=== PATIENT | female | born 2000 | race Caucasian/White ===

== ENCOUNTER 2022-05-16 05:53 | Day surgery (SDC) | payer MEDICAID ==
[~2022-05-16] VITALS: Ht 160 cm; Wt 59.9 kg
[2022-05-16] MEDS ORDERED: BUPIVACAINE-MPF/EPI 0.25% 10 ML VIAL INJ ONE (07:12)
[2022-05-16] MEDS ORDERED: LIDOCAINE MPF 1% 10 ML ONE (07:12)
[2022-05-16 07:40] LABS: BASOPHILS # (AUTO) 0.1 K/uL (0.00-0.22); BASOPHILS % (AUTO) 0.9 % (0.0-2.0); EOSINOPHILS # (AUTO) 0.1 K/uL (0-0.4); HEMATOCRIT 37.5 % (36-48); HEMOGLOBIN 12.2 g/dL (12.0-16.0); LYMPHOCYTES # (AUTO) 2.6 K/uL (2.5-16.5); LYMPHOCYTES % (AUTO) 32.7 % (20.5-51.1); MEAN CORPUSCULAR HEMOGLOBIN 27 pg (27-31); MEAN CORPUSCULAR HGB CONC 33 g/dL (33-37); MEAN CORPUSCULAR VOLUME 82.5 fL (80-94); MONOCYTES # (AUTO) 0.6 K/uL (0.8-1.0); MONOCYTES % (AUTO) 6.9 % (1.7-9.3); NEUTROPHILS # (AUTO) 4.7 K/uL (1.8-7.7); NEUTROPHILS % (AUTO) 58.5 % (42.2-75.2); PLATELET COUNT (AUTO) 225 K/uL (140-450); RED BLOOD CELL COUNT(AUTO) 4.55 MIL/uL (4.20-5.40); RED CELL DISTRIBUTION WIDTH 14.3 % (11.6-13.7); WHITE BLOOD COUNT (AUTO) 8.1 K/uL (4.8-10.8)
[2022-05-16 07:56] LABS: ALBUMIN 4.1 g/dL (3.4-5.0); ANION GAP 10.7 (8-16); CARBON DIOXIDE 27.9 mmol/L (21-32); CREATININE 0.7 mg/dL (0.6-1.3); POTASSIUM 3.6 mmol/L (3.5-5.1); TOTAL BILIRUBIN 0.2 mg/dL (0.0-1.0)
[2022-05-16] MEDS ORDERED: ROCURONIUM 50 MG/5 ML VIAL IV ONE ×2 (11:15→11:47)
[2022-05-16] MEDS ORDERED: ceFAZolin 1,000 MG VIAL ONE (11:15)
[2022-05-16] MEDS ORDERED: PROPOFOL 200 MG/20 ML VIAL IV ONE ×2 (11:15→11:46)
[2022-05-16] MEDS ORDERED: DEXAMETHASONE 4 MG/ML VIAL ONE ×2 (11:15→11:46)
[2022-05-16] MEDS ORDERED: SUGAMMADEX SODIUM 200 MG/2 ML VIAL IV ONE ×2 (11:15→11:48)
[2022-05-16] MEDS ORDERED: fentaNYL citrate 0.05 MG/ML - 50mL vial IV ONE (11:15)
[2022-05-16] MEDS ORDERED: HYDROmorphone PFS 2 MG/ML SYR ONE ×3 (11:15→13:43)
[2022-05-16] MEDS ORDERED: SUCCINYLCHOLINE CHLORIDE 200 MG/10 ML VIAL IVP ONE ×2 (11:15→11:47)
[2022-05-16] MEDS ORDERED: KETOROLAC 30 MG/ML VIAL ONE ×2 (11:15→11:46)
[2022-05-16] MEDS ORDERED: ONDANSETRON 4 MG/2 ML VIAL ONE ×2 (11:15→11:46)
[2022-05-16] MEDS ORDERED: DEFEROXAMINE 500 MG VIAL ONE (11:15)
[2022-05-16] MEDS ORDERED: fentaNYL citrate 0.05 MG/ML VIAL ONE (11:47)
[2022-05-16] MEDS ORDERED: MORPHINE SULFATE 4 MG/ML SYR IV PRN (12:55)
[2022-05-16] MEDS ORDERED: ONDANSETRON 4 MG/2 ML VIAL IV PRN (12:55)
[2022-05-16] MEDS ORDERED: HYDROmorphone 1 MG/ML AMP IVP PRN ×2 (12:55→13:00)
[2022-05-16] MEDS ORDERED: MORPHINE SULFATE 2 MG/ML SYR IVP PRN (12:55)
[2022-05-16] MEDS ORDERED: ONDANSETRON 4 MG/2 ML VIAL IVP PRN (13:00)
== END 2022-05-16 14:58 | disposition home or self-care (01) ==
LOC: MDS 05:53 → MMU 06:43 → MDS 14:58
PROVIDERS: ATTEND Surgery
DX: K80.10 Calculus of gallbladder with chronic cholecystitis without obstruction (principal); M19.90 Unspecified osteoarthritis, unspecified site; Z20.822 Contact with and (suspected) exposure to COVID-19; Z79.899 Other long term (current) drug therapy
CPT/HCPCS: 36415; 47562; 71045; 80053; 82374; 85025; 86886; 86900; 86901; 87426; J0330; J0690; J0895; J1100; J1170; J1885; J2001; J2405; J2704; J3010; J3490; J7030; J7060; Q0092